=== PATIENT | female | born 1940 | race Caucasian/White ===

== ENCOUNTER 2016-09-28 11:05 | Emergency (ER) | payer OTHER ==
[2016-09-28 11:19] VITALS: TEMP 97.9
--- NOTE | 2016-09-28 11:30 | EDPHY ---
H & P Stated Complaint: fall on a step yesterday; abraions L hand, B knee, R knee, ankle/foot pain Time Seen by Provider: 09/28/16 11:12 HPI/ROS: CHIEF COMPLAINT: Right foot and ankle pain after fall History by patient HISTORY OF PRESENT ILLNESS: 68-year-old woman presents after mechanical fall yesterday when she missed a step and fell down 1 step outside on the sidewalk landing on all fours. She did not hit her head or injure her neck. She sustained abrasions to her hands and her knees and complains of pain especially in the right knee. She has had ongoing pain and swelling in her right foot and ankle since the fall and is concerned there may be a fracture as she is having difficulty walking on it. She has a prior history of surgery on that ankle for fracture in the past. Last night she took a codeine pill that she had left over from a biopsy procedure which gave her minimal relief. Her last tetanus immunization was less than 10 years ago. She denies any other pain or injury. REVIEW OF SYSTEMS: As in HPI, and all other systems reviewed and are negative Source: Patient - Personal History Current Tetanus/Diphtheria Vaccine: Yes - Medical/Surgical History Hx Asthma: No Hx Chronic Respiratory Disease: No Hx Diabetes: Yes Hx Cardiac Disease: Yes Hx Renal Disease: No Hx Cirrhosis: No Hx Alcoholism: No Hx HIV/AIDS: No Hx Splenectomy or Spleen Trauma: No Other PMH: hernia, hyst, ankle surgery - Physical Exam Exam: General Appearance: Alert and no distress. Eyes: Pupils equal and round no injection. Musculoskeletal: Neck is supple and nontender. Full range of motion Extremities: Bilateral knee abrasions and ecchymoses, full range of motion of both lease, minimal swelling and no ligamentous laxity, right ankle with minimal anterior swelling and ecchymoses, no posterior malleolar tenderness, positive tenderness of base of 5th metatarsal with associated ecchymosis and swelling, DP pulses 2+ and equal bilaterally, wiggles toes, distal sensation intact, left foot unaffected. Skin: Abrasions of bilateral palms. Constitutional: Initial Vital Signs Temperature (C) 36.6 C 09/28/16 11:08 Heart Rate 82 09/28/16 11:08 Respiratory Rate 20 09/28/16 11:08 Blood Pressure 171/87 H 09/28/16 11:08 O2 Sat (%) 96 09/28/16 11:08 O2 Delivery Mode Room Air Allergies/Adverse Reactions: No Known Allergies Allergy (Unverified 09/28/16 11:18) Home Medications: Medication Instructions Recorded Bp Med 09/28/16 Metformin HCl 09/28/16 Simvastatin 09/28/16 Medical Decision Making - Diagnostics Imaging Results: Imaging Impressions Foot X-Ray 09/28/16 11:30 Impression: Negative for fracture. Imaging: I viewed and interpreted images myself ED Course/Re-evaluation: [age]y old woman presents after mechanical fall with bilateral knee abrasions and contusions and right foot pain and swelling. X-ray was obtained which showed no evidence of fracture. We discussed home care and conservative measures. Patient's tetanus status is up-to-date. Departure - Departure Disposition: Home, Routine, Self-Care Clinical Impression: Abrasion of both knees Sprain of right foot Qualifiers: Encounter type: initial encounter Qualified Code(s): S93.601A - Unspecified sprain of right foot, initial encounter Condition: Good Instructions: Foot Sprain (ED), Abrasion (ED) Additional Instructions: You were seen by Dr. Elle Fair today. Take Tylenol ibuprofen as needed for pain. Ice your foot for pain. You may weight bear as tolerated. Return for any worsening or new concerns. Referrals: Micki Chamorro [Primary Care Provider] - As per Instructions
[2016-09-28 12:21] VITALS: BP 163/82; PULSE 72; RESP 16; O2SAT 92
== END 2016-09-28 13:13 | disposition home or self-care (01) ==
LOC: CED 11:05
DX: S93.601A Unspecified sprain of right foot, initial encounter (principal); S80.212A Abrasion, left knee, initial encounter; S80.211A Abrasion, right knee, initial encounter; E11.9 Type 2 diabetes mellitus without complications; Z79.84 Long term (current) use of oral hypoglycemic drugs; W10.9XXA Fall (on) (from) unspecified stairs and steps, initial encounter; Y92.480 Sidewalk as the place of occurrence of the external cause
CPT/HCPCS: 73630; 99283; L3260

== ENCOUNTER → 2016-12-29 | Outpatient (CLI) | payer OTHER | LOC: CIMAGING 10:27 | PROVIDERS: ATTEND Family Medicine | DX: Z12.31 Encounter for screening mammogram for malignant neoplasm of breast (principal) | CPT/HCPCS: G0202 ==

== ENCOUNTER → 2017-12-30 | Outpatient (CLI) | payer OTHER | LOC: CIMAGING 09:54 | PROVIDERS: ATTEND Family Medicine | DX: Z12.31 Encounter for screening mammogram for malignant neoplasm of breast (principal) ==

== ENCOUNTER → 2018-01-07 | Outpatient (CLI) | payer OTHER | LOC: CIMAGING 12:49 | PROVIDERS: ATTEND Family Medicine | DX: R92.8 Other abnormal and inconclusive findings on diagnostic imaging of breast (principal) ==